=== PATIENT | female | born 1970 | race Caucasian/White ===

== ENCOUNTER 2021-02-20 06:23 | Observation (INO) ==
[2021-02-20] MEDS ORDERED: Ondansetron 4 MG/2 ML VIAL IVP PRN (11:51)
[2021-02-20] MEDS ORDERED: Naloxone 0.4 MG/ML INJ IVP PRN (11:51)
[2021-02-20 14:33] LABS: Basophils % 1.1 %; Hematocrit 46.1 % (35.3-44.9); Hemoglobin 15.6 g/dL (11.5-15.4); Immature Granulocytes % 0.3 % (0-4); Lymphocytes # 0.9 K/mcL (0.6-4.6); Lymphocytes % 25.8 %; Mean Corpuscular HGB Conc 33.8 g/dL (31.6-35.5); Mean Corpuscular Hemoglobin 29.8 pg (28.0-33.3); Mean Platelet Volume 9.2 fL (9.4-12.4); Monocytes # 0.3 K/mcL (0.0-1.3); Monocytes % 8.2 %; Platelet Count 244 K/mcL (140-400); Red Blood Count 5.24 M/mcL (3.82-4.97); Red Cell Distribution Width 13.2 % (11.5-14.5); Segmented Neutrophils % 64.6 %; White Blood Count 3.6 K/mcL (4.3-11.1)
[2021-02-20 14:41] LABS: Neutrophils # 2.3 K/mcL (1.6-8.9)
[2021-02-20 14:43] LABS: INR 1.1; Prothrombin Time 12.7 Seconds (9.4-12.1)
[2021-02-20 14:53] LABS: BUN/Creatinine Ratio 13 (6-26); Blood Urea Nitrogen 10 mg/dL (6-20); Calcium 8.5 mg/dL (8.6-10.3); Carbon Dioxide 20 mEq/L (23-29); Chloride 104 mEq/L (98-107); Glucose 129 mg/dL (70-105); Magnesium 2.2 mg/dL (1.6-2.6); Osmolality,Calculated 279 (280-300); Potassium 3.6 mEq/L (3.5-5.1); Sodium 134 mEq/L (136-145); eGFR For African Americans > 60 (> 60); eGFR For Non-African Americans > 60 (> 60)
[2021-02-20 15:44] LABS: Platelet Estimate Normal (Normal); Reactive Lymphocytes Present (Not Present)
[2021-02-20] MEDS: *HR* Enoxaparin 150 MG/ML SYRINGE SQ SCH (17:28)
[2021-02-20] MEDS: DilTIAZem 50 MG/50 ML IV.SOLN IVC SCH (17:29)
[2021-02-20] MEDS ORDERED: Enoxaparin Weight Dosing SQ SCH (18:00)
[2021-02-21] MEDS: DilTIAZem 50 MG/50 ML IV.SOLN IVC SCH ×2 (02:21→07:42)
[2021-02-21] MEDS: *HR* Enoxaparin 150 MG/ML SYRINGE SQ SCH ×2 (04:31→17:41)
[2021-02-21] MEDS: Acetaminophen 325 MG TABLET PO PRN ×2 (04:32→19:43)
[2021-02-21 04:44] LABS: Basophils % 0.6 %; Hematocrit 42.2 % (35.3-44.9); Immature Granulocytes % 0.2 % (0-4); Lymphocytes % 21.1 %; Mean Corpuscular HGB Conc 32.7 g/dL (31.6-35.5); Mean Corpuscular Hemoglobin 29.4 pg (28.0-33.3); Mean Corpuscular Volume 89.8 fL (83.0-100.0); Mean Platelet Volume 9.3 fL (9.4-12.4); Monocytes # 0.4 K/mcL (0.0-1.3); Monocytes % 8.6 %; Neutrophils # 3.3 K/mcL (1.6-8.9); Platelet Count 245 K/mcL (140-400); Red Cell Distribution Width 13.2 % (11.5-14.5); Segmented Neutrophils % 69.5 %; White Blood Count 4.8 K/mcL (4.3-11.1)
[2021-02-21 04:47] LABS: Hemoglobin 13.8 g/dL (11.5-15.4)
[2021-02-21 05:03] LABS: BUN/Creatinine Ratio 13 (6-26); Blood Urea Nitrogen 10 mg/dL (6-20); Calcium 8.1 mg/dL (8.6-10.3); Carbon Dioxide 21 mEq/L (23-29); Chloride 102 mEq/L (98-107); Glucose 106 mg/dL (70-105); Osmolality,Calculated 275 (280-300); Potassium 3.6 mEq/L (3.5-5.1); Sodium 133 mEq/L (136-145); eGFR For African Americans > 60 (> 60); eGFR For Non-African Americans > 60 (> 60)
[2021-02-21 05:32] LABS: Platelet Estimate Normal (Normal)
[2021-02-21] MEDS ORDERED: Perflutren Lipid Microsphere 1.3 ML in 0.9 % Sodium Chloride 8.7 ML IVP PRN (09:12)
[2021-02-21] MEDS: DilTIAZem CD (24hr) 180 MG CAP.ER.24H PO SCH (11:41)
[2021-02-22] MEDS: *HR* Enoxaparin 150 MG/ML SYRINGE SQ SCH (05:01)
[2021-02-22] MEDS: DilTIAZem CD (24hr) 180 MG CAP.ER.24H PO SCH (08:16)
[2021-02-22] MEDS: Acetaminophen 325 MG TABLET PO PRN ×2 (08:17→14:23)
[2021-02-22 14:09] VITALS: BP 142/85; PULSE 75; TEMP 100.9; O2SAT 97
== END 2021-02-22 17:57 | disposition home or self-care (01) ==
LOC: 3BNU → SUATTDRO 11:16
PROVIDERS: ADMIT Pharmacist; ATTEND Student in an Organized Health Care Education/Training Program